=== PATIENT | female | born 1975 ===

== ENCOUNTER 2023-04-29 12:30 | Inpatient (IN) | payer OTHER ==
[~2023-04-29] VITALS: Ht 149.9 cm; Wt 54.9 kg
[2023-04-29] MEDS ORDERED: BIOTIN1 M1 PO (14:29)
[2023-04-29] MEDS ORDERED: ADVIL ALLERGY1 EACH PO (14:29)
[2023-04-29] MEDS ORDERED: METAMUCIL0.4 GM PO (14:30)
[2023-04-29] MEDS ORDERED: PROBIOTIC250 MG PO (14:31)
== END 2023-05-07 13:58 | disposition home or self-care (01) | DRG 743 ==
LOC: O/R 05-06 07:02 → SURG 05-06 12:30
PROVIDERS: Obstetrics & Gynecology; ADMIT Obstetrics & Gynecology Gynecologic Oncology; ATTEND Obstetrics & Gynecology Gynecologic Oncology
PROC: 0UT74ZZ Resection of Bilateral Fallopian Tubes, Percutaneous Endoscopic Approach (ICD-10-PCS; 2023-05-06)
PROC: 0UT94ZZ Resection of Uterus, Percutaneous Endoscopic Approach (ICD-10-PCS; principal; 2023-05-06 12:45)
DX: N72 Inflammatory disease of cervix uteri (principal); Z20.822 Contact with and (suspected) exposure to COVID-19